=== PATIENT | male | born 1985 | race Two or more races ===

== ENCOUNTER 2020-01-11 15:10 | Emergency (ER) | payer OTHER ==
[~2020-01-11] VITALS: Ht 182.9 cm; Wt 127.0 kg
[2020-01-11 15:10] VITALS: BP 144/88
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
--- NOTE | 2020-01-11 15:37 | NUR ---
ED Nurse Note: [employer] @ bedside.
[2020-01-11] MEDS ORDERED: Albuterol ud Inhalation HHN ONE (16:15)
--- NOTE | 2020-01-11 16:23 | NUR ---
ED Nurse Note: Pt in radiology
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
--- NOTE | 2020-01-11 16:47 | NUR ---
ED Nurse Note: Pt back from radiology and RT @ bedside
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
[2020-01-11] MEDS ORDERED: IBUPROFEN600 MG ORAL (18:26)
[2020-01-11 18:45] VITALS: BP 141/84
--- NOTE | 2020-01-11 18:45 | NUR ---
ER DISCHARGE NOTE: Patient is cleared to be discharged per ERMD, pt is aox4, on room air, with stable vital signs as documented. pt was given dc and prescription instructions and was able to verbalize understanding. pt id band removed. pt is able to ambulate with steady gait. pt took all belongings.
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
== END 2020-01-11 18:45 | disposition home or self-care (01) ==
LOC: EDBD 15:10 → EMR 17:22
DX: S20.212A Contusion of left front wall of thorax, initial encounter (principal); Y04.2XXA Assault by strike against or bumped into by another person, initial encounter; Y92.89 Other specified places as the place of occurrence of the external cause; J45.909 Unspecified asthma, uncomplicated; R73.03 Prediabetes
CPT/HCPCS: 71100; 71250; 93005; Z7502; 99284